=== PATIENT | female | born 1950 | race Caucasian/White ===

== ENCOUNTER → 2016-04-05 | Outpatient (CLI) | payer MEDICARE ==
[~2016-04-05] MED LIST: ISOVUE-370 76% 100ML VIAL (Q9967) As Ordered ONE
--- NOTE | 2016-04-06 16:26 | REP ---
CT ABDOMEN AND PELVIS WITHOUT AND WITH CONTRAST: 04/05/2016. Clinical history. Hydronephrosis with ureteral stricture, prior Hodgkin's lymphoma with radiation and chemotherapy in the past. Comparison: MRI abdomen without and with contrast 02/22/2016. Technique: Axial noncontrast abdomen and pelvis images with a bolus of 100 mL of Isovue 370 then performed and scanning through the abdomen pelvis, again performed with re-examination after a 9-minute delay. Coronal and sagittal reconstructions of those delayed images were obtained for CT urogram. Findings: CT abdomen: The lung bases were clear. No pleural effusion, pleural thickening or calcified pleural plaque evident and no evidence of a nodule or mass. Heart not enlarged. No pericardial thickening or effusion. The airway is unremarkable. No definite hiatal hernia. The liver, spleen and gallbladder are grossly intact. No calcified stone stones are evident. Left adrenal nodule is unchanged and has low density consistent with CT diagnosis of adrenal adenoma The gland itself measures 3 cm. There is no hydronephrosis. An extrarenal pelvis is noted. There are calcifications in the renal sinus on both sides which I suspect are vascular. The patient has an aortofemoral graft to the left common femoral artery. There is across femoral graft from left to right and clips are seen in both inguinal regions. Diffuse atherosclerotic calcifications are seen within the aorta with a maximum diameter of 2.7 cm infrarenal. Large eccentric soft plaque noted. Ectasia of the central area noted which tapers normally distally. Atherosclerotic calcifications are present. The mesentery shows no periaortic inflammatory changes or adenopathy. There is no ascites or free air in the abdomen or pelvis on this study. Gallbladder, liver, spleen, and kidneys were otherwise intact. There is one cortical cyst in the posterior aspect interpolar regions of both kidneys. Bones show no compression deformity or disc space narrowing. They maintain their normal gentle lordosis and minimal degenerative disc changes and facets are intact. No spondylolysis. CT pelvis: The bony hips, pelvis, sacrum, SI joints, and lumbosacral junction were intact. There is no spondylolysis, symphysis pubis and pubic rami were intact as well. Bladder is partially filled with the oral contrast containing urine. The ureters show normal course to the bladder. No bladder wall thickening, mass, or stone. Uterus is not enlarged. There is no adnexal mass or gross pelvic free fluid. There is extrarenal pelvis and proximal hydroureter to where the ureter crosses the aortofemoral graft origin. Below this the ureter is normal caliber. The right ureter was not dilated. Moderate stool in the left transverse colon, mild in the right and rectosigmoid. No other significant finding. Impression: 1. There is mild hydronephrosis and external pelvis on the delayed images, but not on the standard precontrast and equilibrium phase images. 2. 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 3. The delayed images show extrarenal pelvis on the left with hydroureter at the level where the ureter crosses the aortofemoral graft, just after its origin from the distal aorta. 4. Cross femoral graft is noted without dilatation at its origin or the junction with the common femoral artery on the right. There is no other significant finding. Signed by Derick Maya MD 04/06/2016 05:54 P
== END | disposition home or self-care (01) ==
LOC: M RAD 07:59
PROVIDERS: ATTEND Nurse Practitioner Women's Health
DX: N13.30 Unspecified hydronephrosis (principal); I77.819 Aortic ectasia, unspecified site; N13.4 Hydroureter
CPT/HCPCS: 74178; Q9967

== ENCOUNTER → 2016-04-08 | Outpatient (CLI) | payer MEDICARE ==
[~2016-04-08] MED LIST changes: +FUROSEMIDE 20 MG/2 ML VIAL (J1940) As Ordered ONE; -ISOVUE-370 76% 100ML VIAL (Q9967) As Ordered ONE
--- NOTE | 2016-04-08 16:21 | REP ---
Nuclear renal scintigraphy with differential flow and function analysis and post Lasix washout venography: History: Hydronephrosis with ureteral stricture. Comparison CT study: 04/05/2016 shows mild bilateral hydronephrosis and hydroureter left more so than right. Technique: 8.1 mCi technetium 99m Mag 3 is injected and a posterior flow and excretory phase images are acquired. Renal cortical regions of interest are drawn and time activity curves are plotted for renal function analysis. 20 mg of intravenous Lasix is given and post Lasix venography is carried out. Scintigraphic findings: The posterior flow study shows symmetric renal bed perfusion. Excretory phase images show no evidence of intrarenal mass. Renal collecting systems and pelves are labeled on the 3 to 4-minute image bilaterally. There is some fullness of the intrarenal collecting system and pelvis on the right initially and on the left in the later stages of this study. Pre and postvoid images show some retained pelvis in the left intrarenal collecting system and pelvis. Good bladder emptying. Differential renal function analysis shows 40% of overall renal cortical counts coming from the left kidney and 60% from the right. Time to peak activity is essentially normal measured at 3 minutes on the left and 2 minutes on the right. Time to half max activity is somewhat delayed on the left at 14.6 minutes and normal on the right at the 9.8 minutes. Post Lasix venography curves show washout from the intrarenal collecting system bilaterally. The time to half peak post Lasix on the left is 11.5 minutes. The washout curve is less deep on the right but there was no significant hydronephrosis on initial pre-Lasix images on the right. Impression: Nonobstructive fullness of the intrarenal collecting system bilaterally, left more so than right. Signed by Luca Cary MD 04/08/2016 05:03 P
== END | disposition home or self-care (01) ==
LOC: M RAD 12:31
PROVIDERS: ATTEND Nurse Practitioner Women's Health
DX: N13.1 Hydronephrosis with ureteral stricture, not elsewhere classified (principal)
CPT/HCPCS: 78708; A9562; J1940

== ENCOUNTER → 2016-09-14 | Outpatient (REF) | payer MEDICARE | LOC: M SMT 13:12 | PROVIDERS: ATTEND Nurse Practitioner Women's Health | DX: N13.1 Hydronephrosis with ureteral stricture, not elsewhere classified (principal) | CPT/HCPCS: 81001; 87086; G0463 ==

== ENCOUNTER → 2019-12-31 | Outpatient (CLI) | payer MEDICARE ==
--- NOTE | 2020-01-03 12:05 | REP ---
PET CT HISTORY: Diagnosing lung cancer. Solitary pulmonary nodule. TECHNIQUE: 1 hour and 14 minutes following the intravenous injection of an 8.86 mCi dose of F18 fluorodeoxyglucose (FDG), three-dimensional PET CT imaging is acquired from the skull base to the proximal thighs in the usual fashion. PET CT FINDINGS: Todays accompanying chest CT images demonstrate a 7-mm solid appearing nodule in the right lower lobe posteriorly near the major fissure displayed on Page 79 of 227 in Series 2 of todays study. There is a ground-glass opacity in the left lower lobe similar in size, 7 mm displayed on Page 83 of 227. No other pulmonary nodule is visible. Head and neck soft tissues are unremarkable. No abnormal hypermetabolic uptake is seen in the pulmonary nodules described above. No abnormal pulmonary parenchymal hypermetabolic uptake is seen. No abnormal hilar hypermetabolic uptake is appreciated. Normal appearing nonhypermetabolic precarinal lymph nodes are visible. No abnormal hypermetabolic uptake is seen in the chest. The known low density stable left adrenal nodule does not show hypermetabolic uptake. No abnormal hepatic uptake is seen. No abnormal uptake is seen in the abdomen or pelvis. There is an infrarenal abdominal aortic aneurysm measuring 3.4 cm in greatest diameter. There are a few scattered colonic diverticula. No abnormal abdominal or pelvic hypermetabolic uptake is seen. IMPRESSION: Negative PET scintigraphy. Neither the right lower lobe nor the left lower lobe pulmonary nodule shows abnormal hypermetabolic uptake. MTDD
== END ==
LOC: M PLARAD 11:30
PROVIDERS: ATTEND Internal Medicine Pulmonary Disease
DX: R91.1 Solitary pulmonary nodule (principal)
CPT/HCPCS: 78815; A9552

== ENCOUNTER → 2020-06-30 | Outpatient (REF) | payer MEDICARE ==
[2020-06-30 17:07] LABS: BASO # 0.1 10^3/uL (0.0-0.2); BASO % 1.1 % (0.0-1.0); EOS # 0.1 10^3/uL (0.0-0.5); EOS % 1.2 % (0.0-3.0); HEMOGLOBIN 14.4 g/dl (12.0-15.5); LYMPH # 2.5 10^3/uL (1.5-5.0); LYMPH % 29.8 % (24.0-44.0); MEAN CORPUSCULAR HEMOGLOBIN 32.1 pg (27.0-33.0); MEAN CORPUSCULAR HGB CONC 32.7 g/dl (32.0-36.5); MONO # 0.6 10^3/uL (0.0-0.8); MONO % 7.1 % (2.0-8.0); NEUTROPHILS # 4.9 10^3/uL (1.5-8.5); NEUTROPHILS % 60.2 % (36.0-66.0); PLATELET COUNT, AUTOMATED 315 10^3/uL (150-450); RED BLOOD COUNT 4.49 10^6/uL (4.00-5.40); WHITE BLOOD COUNT 8.2 10^3/uL (4.0-10.0)
[2020-06-30 17:35] LABS: BLOOD UREA NITROGEN 13 MG/DL (7-18); CALCIUM LEVEL 9.2 MG/DL (8.8-10.2); CARBON DIOXIDE LEVEL 28 MEQ/L (21-32); CHLORIDE LEVEL 105 MEQ/L (98-107); CREATININE FOR GFR 0.94 MG/DL (0.55-1.30); GLOMERULAR FILTRATION RATE > 60.0 (>39); GLUCOSE, FASTING 96 MG/DL (70-100); POTASSIUM SERUM 4.9 MEQ/L (3.5-5.1); SODIUM LEVEL 141 MEQ/L (136-145)
[2020-06-30 17:38] LABS: INR 0.96
[2020-06-30 17:39] LABS: PARTIAL THROMBOPLASTIN TIME 30.9 SECONDS (24.2-38.5)
== END ==
LOC: M LAB REF 16:34
PROVIDERS: ATTEND Internal Medicine Pulmonary Disease
DX: R91.1 Solitary pulmonary nodule (principal); Z79.01 Long term (current) use of anticoagulants

== ENCOUNTER → 2020-07-29 | Outpatient (CLI) | payer MEDICARE ==
[~2020-07-29] MED LIST changes: +CLOP75TA2 PO; -FUROSEMIDE 20 MG/2 ML VIAL (J1940) As Ordered ONE; +HYDR-3363 PO; +LOVA10TA PO; +QC A650T3 PO; +VALS40TA9 PO
== END ==
LOC: M LABSMTC 12:33
PROVIDERS: ATTEND Anesthesiology
DX: Z01.812 Encounter for preprocedural laboratory examination (principal); Z20.822 Contact with and (suspected) exposure to COVID-19

== ENCOUNTER 2020-08-03 10:33 | Day surgery (SDC) | payer MEDICARE ==
[~2020-08-03] VITALS: Ht 162.6 cm; Wt 58.9 kg
[~2020-08-03 10:33] MED LIST changes: +ALBUTEROL SULFATE 2.5 MG/0.5 ML INH NEB SOLN INH ONE; +LIDOCAINE 4% INJ 5ML AMP INH ONE; +LR 1,000 ML IV ONE
[2020-08-03] MEDS ORDERED: fentaNYL 100 MCG/2 ML INJECTION (J3010) As Ordered ONE (11:18)
[2020-08-03] MEDS ORDERED: dexameTHASONE 4 MG/ML 1ML VIAL (J1100 PER 1MG) As Ordered ONE (11:18)
[2020-08-03] MEDS ORDERED: LIDOCAINE 2% 100MG/5ML SDV (FOR ANES.) As Ordered ONE (11:18)
[2020-08-03] MEDS ORDERED: ROCURONIUM BROMIDE 50 MG/5 ML VIAL As Ordered ONE (11:18)
[2020-08-03] MEDS ORDERED: MIDAZOLAM INJ 2MG/2ML VIAL (J2250 PER 1MG) As Ordered ONE (11:18)
[2020-08-03] MEDS ORDERED: ONDANSETRON 4MG/2ML VIAL As Ordered ONE ×2 (11:18→13:51)
[2020-08-03] MEDS ORDERED: SUGAMMADEX SODIUM 500 MG/5 ML VIAL (BRIDION) As Ordered ONE (11:18)
[2020-08-03] MEDS ORDERED: propofoL 200 MG/20 ML VIAL As Ordered ONE (11:18)
[2020-08-03] MEDS ORDERED: CETACAINE SPRAY 5GM As Ordered ONE (11:52)
[2020-08-03] MEDS ORDERED: EPINEPHrine 1MG/10ML SYRINGE 1.5IN As Ordered ONE (12:23)
[2020-08-03] MEDS ORDERED: PHENYLephrine 500MCG 5ML (100MCG/ML) SYRINGE As Ordered ONE (13:19)
--- NOTE | 2020-08-03 13:47 | ROOR ---
Patient Name: Alize Aparicio Procedure Date: 08/03/2020 11:53 AM Date of : 1950 Admit Type: Outpatient Age: 70 Room: Main OR Note Status: Finalized Attending MD: Bing Wilson MD Procedure: Bronchoscopy Indications: Right lower lobe nodule Providers: Bing Wilson MD (Doctor), Gamal Lopez DO, [facility] (1st Assisting Doctor) Referring MD: None Requesting Physician: Medicines: Lidocaine 4% via nebulizer with Albuterol 2.5 mg, General Anesthesia, Epinephrine 1 mg/10 mL topical 1 mL, Cetacaine topical Complications: No immediate complications. Estimated blood loss: Minimal Procedure: Pre-Anesthesia Assessment: - Prior to the procedure, a History and Physical was performed, and patient medications and allergies were reviewed. The patient's tolerance of previous anesthesia was also reviewed. The risks and benefits of the procedure and the sedation options and risks were discussed with the patient. All questions were answered, and informed consent was obtained. Prior Anticoagulants: The patient has taken Plavix (clopidogrel), last dose was 7 days prior to procedure. ASA Grade Assessment: III - A patient with severe systemic disease. After reviewing the risks and benefits, the patient was deemed in satisfactory condition to undergo the procedure. - Patient identification and proposed procedure were verified prior to the procedure by the physician, the nurse, the anesthesiologist, the special education para professional and the fire technician. The procedure was verified in the procedure room. The Bronchoscope was introduced through the mouth, via the endotracheal tube (the patient was intubated for the procedure) and advanced to the tracheobronchial tree of both lungs. The procedure was accomplished without difficulty. The patient tolerated the procedure well. Findings: The endotracheal tube is in good position. The visualized portion of the trachea is of normal caliber. The alfa is sharp. The tracheobronchial tree was examined to at least the first subsegmental level. Bronchial mucosa and anatomy are normal; there are some mucoid white scattered secretions noted but no clear endobronchial lesions noted. Chat[employer] (ChatAnd) robotic Electromagnetic navigation bronchoscopy was performed. The CT scan was used for planning purposes. A virtual bronchoscopic image was generated using the planning software. The target in the superior segment of the right lower lobe was marked. A nodule 1.8 cm in size was found and a pathway was created. After a complete airway exam, the robotic electromagnetic navigation phase was then begun to locate the target lesion(s). Positioning centrally (in relation to the lesion) was confirmed using the Olympus radial probe US catheter. Transbronchial biopsies of a nodule were performed in the superior segment of the right lower lobe using forceps and sent for histopathology examination. The procedure was guided by fluoroscopy. Transbronchial biopsy technique was selected because the sampling site was not visible endoscopically. Fiducial marker placement was performed. Once the target lesion was identified, two markers were deployed in and around the lesion 3 mm apart in the superior segment of the right lower lobe. An endobronchial ultrasound endoscope was utilized in order to assist with fine needle aspiration in the subcarinal area and in the right hilum. Transbronchial needle aspirations of a lymph nodes were performed in the subcarinal area and in the right hilum using an Olympus EBUS-TBNA 21 gauge needle and sent for routine cytology. The procedure was guided by ultrasound. Transbronchial needle aspiration technique was selected because the sampling site was not visible endoscopically. Impression: - Right lower lobe nodule - The airway examination was normal. - Electromagnetic navigation bronchoscopy was performed. - Transbronchial lung biopsies were performed. - Fiducial markers were deployed. - Endobronchial ultrasound was performed. - A transbronchial needle aspiration was performed. Recommendation: - Await test results. Procedure Code(s): --- Professional --- 27735, Bronchoscopy, rigid or flexible, including fluoroscopic guidance, when performed; with placement of fiducial markers, single or multiple 03100, Bronchoscopy, rigid or flexible, including fluoroscopic guidance, when performed; with transbronchial needle aspiration biopsy(s), trachea, main stem and/or lobar bronchus(i) 52950, Bronchoscopy, rigid or flexible, including fluoroscopic guidance, when performed; with transbronchial lung biopsy(s), single lobe 29982, Bronchoscopy, rigid or flexible, including fluoroscopic guidance, when performed; with computer-assisted, image-guided navigation (List separately in addition to code for primary procedure[s]) 58753, Bronchoscopy, rigid or flexible, including fluoroscopic guidance, when performed; with transendoscopic endobronchial ultrasound (EBUS) during bronchoscopic diagnostic or therapeutic intervention(s) for peripheral lesion(s) (List separately in addition to code for primary procedure[s]) CPT copyright 2019 [employer]. All rights reserved. The codes documented in this report are preliminary and upon cutter down review may be revised to meet current compliance requirements. Bing Wilson MD 08/03/2020 1:47:27 PM Gamal Lopez DO, [facility] [place] Number of Addenda: 0 Note Initiated On: 08/03/2020 11:53 AM
--- NOTE | 2020-08-03 14:07 | REP ---
INDICATION: post op in pacu. COMPARISON: None. TECHNIQUE: Portable FINDINGS: The technique utilized in obtaining the radiograph has magnified the cardiac silhouette and accentuated the interstitial markings. The superior mediastinal structures are midline. The cardiac silhouette is unremarkable in size, shape, and position. The diaphragmatic surfaces of the lungs are regular, and the costophrenic angles are clear. The pulmonary kong are clear. Two tiny linear metallic radiodensities are seen in the right infrahilar region. The imaged osseous structures are intact. IMPRESSION: There is no acute cardiopulmonary disease. Two metallic radiodensities seen, as described above, and possibly representing fiducial markers. <Electronically signed by Ervin Terrazas > 08/03/20 0720
[2020-08-03] MEDS ORDERED: fentaNYL 100 MCG/2 ML INJECTION (J3010) IV PRN (14:10)
[2020-08-03] MEDS ORDERED: METOCLOPRAMIDE INJ 10MG/2ML VIAL (J2765 PER 1) IV PRN (14:10)
[2020-08-03] MEDS ORDERED: oxyCODONE 5MG TAB PO PRN (14:10)
[2020-08-03] MEDS ORDERED: ONDANSETRON 4MG/2ML VIAL IV PRN (14:10)
[2020-08-03] MEDS ORDERED: LR 1,000 ML IV SCH (14:10)
[2020-08-03 14:53] VITALS: BP 160/67
== END 2020-08-03 15:11 | disposition home or self-care (01) ==
LOC: M SDC 10:33
PROVIDERS: ATTEND Internal Medicine Pulmonary Disease
DX: J84.10 Pulmonary fibrosis, unspecified (principal); R91.1 Solitary pulmonary nodule; R59.0 Localized enlarged lymph nodes; J44.9 Chronic obstructive pulmonary disease, unspecified; C81.90 Hodgkin lymphoma, unspecified, unspecified site; I10 Essential (primary) hypertension; E78.5 Hyperlipidemia, unspecified; R73.03 Prediabetes; I73.9 Peripheral vascular disease, unspecified; R06.02 Shortness of breath; G47.00 Insomnia, unspecified; F41.9 Anxiety disorder, unspecified; R06.83 Snoring; Z92.21 Personal history of antineoplastic chemotherapy; Z92.3 Personal history of irradiation; F17.218 Nicotine dependence, cigarettes, with other nicotine-induced disorders; Z88.8 Allergy status to other drugs, medicaments and biological substances; Z79.899 Other long term (current) drug therapy; Z79.02 Long term (current) use of antithrombotics/antiplatelets
CPT/HCPCS: 31626; 31627; 31628; 31629; 31652; 71045; 76000; 88173; 88305; 88341; 88342; A4648; J1100; J2250; J2370; J2405; J3010; S2900

== ENCOUNTER → 2020-09-29 | Outpatient (CLI) | payer MEDICARE ==
[~2020-09-29] MED LIST changes: +ACET-683 PO; -ALBUTEROL SULFATE 2.5 MG/0.5 ML INH NEB SOLN INH ONE; +AZIT-10 PO; +B-122500 PO; +CODE473L3 PO; +CVS1CAP5 PO; +DEXA2TA PO; -LIDOCAINE 4% INJ 5ML AMP INH ONE; +LORA1TAB4 PO; -LR 1,000 ML IV ONE; +PLAV1TAB2 PO
== END ==
LOC: M PLARAD 07:54
PROVIDERS: ATTEND Internal Medicine Pulmonary Disease
DX: R91.1 Solitary pulmonary nodule (principal)
CPT/HCPCS: 78815; A9552

== ENCOUNTER → 2020-11-26 | Outpatient (CLI) | payer MEDICARE ==
[~2020-11-26] MED LIST changes: -ACET-683 PO; -AZIT-10 PO; -B-122500 PO; -CODE473L3 PO; -CVS1CAP5 PO; -DEXA2TA PO; -LORA1TAB4 PO; -PLAV1TAB2 PO
--- NOTE | 2020-11-26 15:02 | REP ---
INDICATION: SOLITARY PULMONARY NODULE COMPARISON: 12/06/2019 from an outside institution TECHNIQUE: Standard helical technique without intravenous contrast FINDINGS: There are multiple prominent borderline mediastinal lymph nodes. There is right hilar adenopathy but difficult to evaluate without intravenous contrast. There are no pleural or pericardial effusions. The imaged upper abdomen shows bilateral low-density adrenal gland masses left greater than right and unchanged from prior CT examination of the abdomen and pelvis of 04/05/2016.. The imaged osseous structures are stable and intact. Evaluation of the lung kong shows a 3.4 x 2.8 x 2.9 cm sized spiculated right infrahilar mass which abuts the right hilum and seen with spiculations in both right middle and right lower lobe regions. Metallic radiodensities are seen in this mass consistent with fiducial markers. Previously, this density measured 0.8 x 0.7 x 0.5 cm. In the left lower lobe there is an unchanged 9 mm sized ground-glass nodule with irregular margins. In the region of the superior lingula there is an asymmetric density which measures 0.9 cm in its greatest dimension. This represents a change from the prior exam. There is evidence of mild cylindrical bronchiectasis status quo and mild biapical pleuroparenchymal scarring. IMPRESSION: 1. Right lung mass as described above. 2. Additional asymmetric densities and chronic lung field changes as described above. 3. Suspected right hilar adenopathy and borderline mediastinal lymph nodes. Consider contrast-enhanced chest CT if clinically relevant. 4. Other findings as described above. <Electronically signed by Ervin Terrazas > 11/26/20 0430
== END ==
LOC: M RAD 14:10
PROVIDERS: ATTEND Internal Medicine Pulmonary Disease
DX: R91.1 Solitary pulmonary nodule (principal)

== ENCOUNTER → 2020-12-09 | Outpatient (CLI) | payer MEDICARE ==
[2020-12-09 15:09] LABS: BASO # 0.1 10^3/uL (0.0-0.2); BASO % 0.7 % (0.0-1.0); EOS # 0.2 10^3/uL (0.0-0.5); EOS % 1.9 % (0.0-3.0); HEMATOCRIT 42.8 % (36.0-47.0); HEMOGLOBIN 14.1 g/dl (12.0-15.5); LYMPH # 1.9 10^3/uL (1.5-5.0); LYMPH % 22.1 % (24.0-44.0); MEAN CORPUSCULAR HEMOGLOBIN 31.8 pg (27.0-33.0); MEAN CORPUSCULAR HGB CONC 32.9 g/dl (32.0-36.5); MEAN CORPUSCULAR VOLUME 96.6 fl (80.0-96.0); MONO # 0.8 10^3/uL (0.0-0.8); MONO % 8.7 % (2.0-8.0); NEUTROPHILS # 5.8 10^3/uL (1.5-8.5); NEUTROPHILS % 66.3 % (36.0-66.0); PLATELET COUNT, AUTOMATED 293 10^3/uL (150-450); RED BLOOD COUNT 4.43 10^6/uL (4.00-5.40); WHITE BLOOD COUNT 8.7 10^3/uL (4.0-10.0)
[2020-12-09 15:18] LABS: INR 0.93; PROTHROMBIN TIME 12.9 SECONDS (12.7-14.5)
[2020-12-09 15:30] LABS: CALCIUM LEVEL 9.1 MG/DL (8.8-10.2); CREATININE FOR GFR 0.99 MG/DL (0.55-1.30); GLOMERULAR FILTRATION RATE 58.9 (>39)
== END ==
LOC: M PLALAB 14:23
PROVIDERS: ATTEND Internal Medicine Pulmonary Disease
DX: R91.1 Solitary pulmonary nodule (principal)

== ENCOUNTER → 2020-12-11 | Outpatient (CLI) | payer MEDICARE ==
[~2020-12-11] MED LIST changes: +CVS1CAP5 PO
== END ==
LOC: M LABSMTC 09:39
PROVIDERS: ATTEND Anesthesiology
DX: Z01.812 Encounter for preprocedural laboratory examination (principal); Z20.822 Contact with and (suspected) exposure to COVID-19

== ENCOUNTER 2020-12-16 06:04 | Day surgery (SDC) | payer MEDICARE ==
[~2020-12-16] VITALS: Ht 162.6 cm; Wt 59.5 kg
[2020-12-16] MEDS ORDERED: ALBUTEROL SULFATE 2.5 MG/0.5 ML INH NEB SOLN INH ONE (07:10)
[2020-12-16] MEDS ORDERED: LR 1,000 ML IV ONE (07:10)
[2020-12-16] MEDS ORDERED: LIDOCAINE 4% INJ 5ML AMP INH ONE (07:10)
[2020-12-16] MEDS ORDERED: EPINEPHrine 1MG/10ML SYRINGE 1.5IN As Ordered ONE (07:12)
[2020-12-16] MEDS ORDERED: THROMBIN SOLN 5,000 UNITS VIAL As Ordered ONE (07:12)
[2020-12-16] MEDS ORDERED: CETACAINE SPRAY 5GM As Ordered ONE (07:12)
[2020-12-16] MEDS ORDERED: LIDOCAINE 2% 100MG/5ML SDV (FOR ANES.) As Ordered ONE (07:14)
[2020-12-16] MEDS ORDERED: ROCURONIUM BROMIDE 50 MG/5 ML VIAL As Ordered ONE (07:14)
[2020-12-16] MEDS ORDERED: fentaNYL 100 MCG/2 ML INJECTION (J3010) As Ordered ONE (07:15)
[2020-12-16] MEDS ORDERED: MIDAZOLAM INJ 2MG/2ML VIAL (J2250 PER 1MG) As Ordered ONE (07:15)
[2020-12-16] MEDS ORDERED: dexameTHASONE 4 MG/ML 1ML VIAL (J1100 PER 1MG) As Ordered ONE (07:15)
[2020-12-16] MEDS ORDERED: propofoL 200 MG/20 ML VIAL As Ordered ONE (07:15)
[2020-12-16] MEDS ORDERED: METOCLOPRAMIDE INJ 10MG/2ML VIAL (J2765 PER 1) As Ordered ONE (07:15)
[2020-12-16] MEDS ORDERED: ONDANSETRON 4MG/2ML VIAL As Ordered ONE (07:15)
--- NOTE | 2020-12-16 09:10 | REP ---
INDICATION: RIGHT LOWER LOBE ABNORMALITY, MEDIASTINAL LYMPHADENOPATHY. COMPARISON: None. TECHNIQUE: Thirty views. 257.4 seconds of fluoroscopy time is reported. FINDINGS: A sequence of 30 last image hold fluoroscopically obtained spot radiographs of the chest document bronchoscopic positioning and manipulation. IMPRESSION: Procedural imaging. <Electronically signed by Nikolas Cary > 12/16/20 0982
--- NOTE | 2020-12-16 09:19 | ROOR ---
Patient Name: Alize Aparicio Procedure Date: 12/16/2020 7:16 AM Date of : 1950 Admit Type: Outpatient Age: 70 Room: Main OR Note Status: Finalized Attending MD: Bing Wilson MD Procedure: Bronchoscopy Indications: Right lower lobe mass Providers: Bing Wilson MD (Doctor) Referring MD: 1. NO/Unknown PCP 1. NO/Unknown PCP, Admin. (Referring MD) Requesting Physician: Medicines: Lidocaine 4% via nebulizer with Albuterol 2.5 mg, Epinephrine 1 mg/10 mL topical 1 mL, Cetacaine topical, General Anesthesia Complications: No immediate complications. Estimated blood loss: Minimal Procedure: Pre-Anesthesia Assessment: - Prior to the procedure, a History and Physical was performed, and patient medications and allergies were reviewed. The patient's tolerance of previous anesthesia was also reviewed. The risks and benefits of the procedure and the sedation options and risks were discussed with the patient. All questions were answered, and informed consent was obtained. Prior Anticoagulants: The patient has taken Plavix (clopidogrel), last dose was 7 days prior to procedure. ASA Grade Assessment: III - A patient with severe systemic disease. After reviewing the risks and benefits, the patient was deemed in satisfactory condition to undergo the procedure. - Patient identification and proposed procedure were verified prior to the procedure by the physician, the nurse, the anesthesiologist, the continuous loft operator and the military technician. The procedure was verified in the procedure room. The Bronchoscope was introduced through the mouth, via the endotracheal tube (the patient was intubated for the procedure) and advanced to the tracheobronchial tree of both lungs. The procedure was accomplished without difficulty. The patient tolerated the procedure well. Findings: The endotracheal tube is in good position. The visualized portion of the trachea is of normal caliber. The alfa is sharp. The tracheobronchial tree was examined to at least the first subsegmental level. There was few mucoid secretions noted. Bronchial mucosa and anatomy are normal; there was mucosal pitting and webbing noted. There are no endobronchial lesions. In the RLL superior segment the mucosa appears edematous with extrinsic compression. [employer] Robotic Electromagnetic navigation bronchoscopy was performed. The CT scan was used for planning purposes. A virtual bronchoscopic image was generated using the planning software. The target in the superior segment of the right lower lobe was marked. A mass approx 3 cm in size was found and a pathway was created. After a complete airway exam, the Robotic EM navigation phase was then begun to locate the target lesion(s). Positioning centrally (in relation to the lesion) was confirmed using the Olympus radial probe US catheter. Transbronchial biopsies of a mass were performed in the superior segment of the right lower lobe using forceps and sent for histopathology examination. The procedure was guided by fluoroscopy. Transbronchial biopsy technique was selected because the sampling site was not visible endoscopically. Transbronchial needle aspirations of a mass were performed in the superior segment of the right lower lobe using a Moyer 19 gauge needle and sent for routine cytology. The procedure was guided by fluoroscopy. Transbronchial needle aspiration technique was selected because the sampling site was not accessible using standard endoscopic (bronchoscopic) techniques. Fiducial marker placement was performed. Patient had two previous fiducial markers from prior bronchoscopy. One of the markers was removed using forceps earlier. Once the target lesion was identified, one marker was deployed around the lesion 3-4 mm apart from the previous remaining marker in the superior segment of the right lower lobe. An endobronchial ultrasound endoscope was utilized in order to assist with fine needle aspiration in the subcarinal area and in the right hilum. Transbronchial needle aspirations of a lymph nodes were performed in the subcarinal area and in the right hilum using an Olympus EBUS-TBNA 21 gauge needle and sent for routine cytology. The procedure was guided by ultrasound. Bronchoalveolar lavage was performed in the RLL superior segment (B6) of the lung and sent for routine cytology, AFB analysis & culture and fungal analysis. The return was blood-tinged. Mucous plugs were present in the return fluid. Fiducial marker placement was performed. Once the target lesion was identified, one marker was deployed around the lesion 4 mm apart in the superior segment of the right lower lobe. Impression: - Right lower lobe mass - The airway examination was normal. - Electromagnetic navigation bronchoscopy was performed. - A transbronchial needle aspiration was performed. - Transbronchial lung biopsies were performed. - Endobronchial ultrasound was performed. - A transbronchial needle aspiration was performed. - Bronchoalveolar lavage was performed. Recommendation: - Await test results. Procedure Code(s): --- Professional --- 41932, Bronchoscopy, rigid or flexible, including fluoroscopic guidance, when performed; with transbronchial needle aspiration biopsy(s), trachea, main stem and/or lobar bronchus(i) 92859, Bronchoscopy, rigid or flexible, including fluoroscopic guidance, when performed; with transbronchial lung biopsy(s), single lobe 58543, Bronchoscopy, rigid or flexible, including fluoroscopic guidance, when performed; with bronchial alveolar lavage 03123, Bronchoscopy, rigid or flexible, including fluoroscopic guidance, when performed; with computer-assisted, image-guided navigation (List separately in addition to code for primary procedure[s]) 13137, Bronchoscopy, rigid or flexible, including fluoroscopic guidance, when performed; with transendoscopic endobronchial ultrasound (EBUS) during bronchoscopic diagnostic or therapeutic intervention(s) for peripheral lesion(s) (List separately in addition to code for primary procedure[s]) CPT copyright 2019 [employer]. All rights reserved. The codes documented in this report are preliminary and upon death surveys coder review may be revised to meet current compliance requirements. Bing Wilson MD 12/16/2020 9:19:19 AM Number of Addenda: 0 Note Initiated On: 12/16/2020 7:16 AM
[2020-12-16] MEDS ORDERED: fentaNYL 100 MCG/2 ML INJECTION (J3010) IV PRN (09:25)
[2020-12-16] MEDS ORDERED: ONDANSETRON 4MG/2ML VIAL IV PRN (09:25)
[2020-12-16] MEDS ORDERED: LR 1,000 ML IV SCH (09:25)
[2020-12-16] MEDS ORDERED: HYDROMORPHONE HCL 0.5 MG/ 0.5 ML SYRINGE (J1170 PER 1) IV PRN (09:25)
[2020-12-16] MEDS ORDERED: oxyCODONE 5MG TAB PO PRN (09:25)
--- NOTE | 2020-12-16 09:33 | REP ---
INDICATION: POST OP IN PACU. POST OP IN PACU. COMPARISON: 08/03/2020 TECHNIQUE: Portable FINDINGS: The technique utilized in obtaining the radiograph has magnified the cardiac silhouette and accentuated the interstitial markings. Cardiomediastinal silhouette is unchanged. There is a diffuse increase in the interstitial markings throughout the lung kong. There is a new patchy right lower lobe opacity. The pleural angles are sharp. There is no change in the osseous structures. IMPRESSION: 1. Mild interstitial edema accentuated by portable technique. 2. New right lower lobe opacity. Pneumonia cannot be ruled. <Electronically signed by Ervin Terrazas > 12/16/20 [id number]
[2020-12-16] MEDS ORDERED: ALBUTEROL SULFATE 2.5 MG/0.5 ML INH NEB SOLN INH STA (09:43)
[2020-12-16 10:28] VITALS: BP 175/73
== END 2020-12-16 10:35 | disposition home or self-care (01) ==
LOC: M SDC 06:04
PROVIDERS: ATTEND Internal Medicine Pulmonary Disease
DX: C77.1 Secondary and unspecified malignant neoplasm of intrathoracic lymph nodes (principal); R91.1 Solitary pulmonary nodule; R59.0 Localized enlarged lymph nodes; J44.9 Chronic obstructive pulmonary disease, unspecified; C81.90 Hodgkin lymphoma, unspecified, unspecified site; I10 Essential (primary) hypertension; E11.9 Type 2 diabetes mellitus without complications; E78.00 Pure hypercholesterolemia, unspecified; R01.1 Cardiac murmur, unspecified; Z92.21 Personal history of antineoplastic chemotherapy; R06.83 Snoring; F17.210 Nicotine dependence, cigarettes, uncomplicated; Z88.8 Allergy status to other drugs, medicaments and biological substances; Z79.899 Other long term (current) drug therapy; Z79.02 Long term (current) use of antithrombotics/antiplatelets; Z95.828 Presence of other vascular implants and grafts
CPT/HCPCS: 31624; 31626; 31627; 31628; 31629; 31652; 31654; 71045; 76000; 87102; 87116; 87206; 88108; 88173; 88305; 88313; 88341; 88342; A4648; J1100; J2250; J2405; J2765; J3010; S2900

== ENCOUNTER → 2021-01-05 | Outpatient (CLI) | payer MEDICARE ==
[~2021-01-05] MED LIST changes: +ACET-683 PO; +B-122500 PO; +PLAV1TAB2 PO
--- NOTE | 2021-01-05 16:32 | RADONC.CN ---
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 She is seen today for consideration of chemoradiation. Diagnosis/Treatment History Oncologic History Hodgkin Lymphoma: Discovered on exploratory laparotomoy for possible ovarian cyst s/p ABVD + IFRT (abdominal target volume) [facility] 2013 NSC12/06/[address] chest with RLL nodule 12/31/19 PET-CT negative 09/29/20 PET-CT with RLL avid and growing nodule to 2.5 cm 11/26/20 CT chest lesion to 3.5 cm 12/16/20 EBUS and biopsy confirming NSCLC (adenocarcinoma) in 10R, 7 was negative, RLL nodule had atypical cells PFTs FVC 2.76 FEV1 1.75 FEV1/FVC 76% pred Mild COPD Interval History Reports she had some cough after biopsy but this has improved. Says her RT in 2013 was abdominal, never had supradiaphragmatic disease. Had a positive cologuard recently, scheduled for colonoscopy January 2021. No BRBPR or abdominal symptoms. She has no CP, minimal JIMENES. No HARVEY or pain. Past Medical History: ANxiety COPD DMII HL HPL PVD Past Surgical History: AAA repair Aortofemoral bypass Family History: No family history of malignancy Social History: Current 1 ppd smoker 50 pack year Does not drink Allergies / Meds Allergies: Coded Allergies: prednisone (Verified Allergy, Severe, tongue swelling, 12/11/20) Home Meds Reported Medications Cyanocobalamin (Vitamin B-12) (Vitamin B12) 2,500 Mcg Tablet, 1000 MCG PO, TAB 01/05/21 Clopidogrel Bisulfate (Plavix) 75 Mg Tablet, 1 TAB PO DAILY for 30 Days, #30 TAB 01/05/21 Acetaminophen (Acetaminophen) 500 Mg Tablet, 1 TAB PO Q6H for fever for 15 Days, #60 TAB 01/05/21 Lactobacillus Combination No.4 (Probiotic) 1 Each Capsule, 1 CAP PO DAILY, CAP 12/11/20 Valsartan (Valsartan) 40 Mg Tablet, 40 MG PO DAILY 07/30/20 Lovastatin (Lovastatin) 10 Mg Tablet, 10 MG PO DAILY 07/30/20 Hydroxyzine HCl (Hydroxyzine HCl) 25 Mg Tablet, 25 MG PO QHS 07/30/20 Discontinued Reported Medications Acetaminophen (Acetaminophen 8 Hour) 650 Mg Tablet.er, 650 MG PO ASDIRECTED for 21 Days, #63 TAB 07/30/20 Clopidogrel Bisulfate (Clopidogrel) 75 Mg Tablet, 75 MG PO DAILY 07/30/20 Review of Systems Constitutional: Reports: Fatigue; Denies: Chills, Weight Loss Eyes: Denies: Pain HEENT: Denies: Head Aches Skin: Denies: Rash Pulmonary: Denies: Dyspnea, Cough, Pleuritic Chest Pain Cardiovascular: Denies: Chest Pain, Edema Gastrointestinal: Denies: Abdominal Pain, Constipation, Melena, Hematochezia Hematologic: Denies: Bruising, Bleeding Excessively Endocrine: Denies: Cold Intolerance Musculoskeletal: Denies: Neck pain, Back pain Neurological: Denies: Weakness, Numbness Psych: Reports: Anxiety Vital Signs Ht 64" Wt 132 lbs BMI 22.6 T 96.1 P 98 RR 18 BP 159.71 O2 97% Pain 0 Fatigue 0 General Exam: Alert, Cooperative, No Acute Distress Eye Exam: PERRLA, EOMI ENT EXAM: Atraumatic Neck Exam: Supple Chest Exam: Clear to auscultation, Normal air movement; Negative: Wheezing Heart Exam: Rate Normal, Regular Rhythm Abdomen Exam: Soft Extremity Exam: Edema Skin Exam: Nl turgor and temperature Neuro Exam: Normal Gait, Normal Speech, Cranial Nerves 3-12 NL Psych Exam: Anxiety Diagnostic and Laboratory Diagnostic Review Radiologic images, relevant labs and pathology reports were personally reviewed and discussed with Ms. Aparicio. Assessment and Plan Impression Ms. Aparicio is a 70 year old female current smoker with a history of Hodgkin Lymphoma (abdominal) s/p ABVD x 4 and IFRT completed @ [facility] in 2013, who has a recently diagnosed NSCLC of the RLL [id number] stage IIB. She is seen today for consideration of chemoradiation. Stage RLL NSCLC [id number] stage IIB Performance Status ECOG 0 Plan We had an extensive discussion with Ms. Aparicio regarding the diagnosis at hand and available therapeutic options. I reviewed her imaging and pathology with her in detail. She appears to be a stage IIB, I am concerned about the subcarinal node which looked evans on CT from 11/26/20 and had some uptake on PET-CT from September 2020. I will attempt to obtain an updated PET-CT now that she has been diagnosed formally with NSCLC to contemporaneously stage her and inform my RT planning volumes. I will also get an MRI brain to complete staging as she has not had any cranial imaging. With respect to treatment I recommend concurrent chemoradiation 60-66 Gy in 30- 33 fractions with VMAT/4DCT/ITV planning. She will be seeing medical oncology later today to hear about chemotherapy and adjuvant immunotherapy. We discussed the logistics of receiving radiation therapy in detail including the need for a 1-time planning session. This can occur in approximately 2 weeks to allow for completion of staging imaging and arrangement of chemotherapy. We discussed the side effects of treatment including fatigue, pneumonitis and esophagitis. I think she should have her colonoscopy done upon completion of her primary chemoradiation, it is important to screen her regularly due to the history of abdominal irradiation and the positive cologuard test, but in the absence of symptoms, this can be deferred to treatment of her lung cancer. I will confirm with pathology that this lung cancer is most consistent with NSCLC and distinct from colon cancer. After discussing the risks, benefits and alternatives to radiation therapy, Ms. Aparicio was amenable to pursuing radiotherapy. All questions were answered to the patient's satisfaction. We instructed the patient that if there were any questions,concerns or changes in clinical status in the interim to contact us. Recommendations Chemoradiation as described above Repeat PET-CT for RT planning MRI brain to complete staging Simulation week of 01/18/21 Billing Statement Total time of [48] minutes was spent preparing for the visit [2], obtaining HPI [6], examining the patient [2], reviewing diagnostic tests [5], discussing management options [22], coordinating care [4], and writing this note [7]. DIVINA ZIEGLER MD Jan 05, 2021 16:32
== END ==
LOC: M ONCR 13:52
PROVIDERS: ATTEND General Practice
DX: C34.31 Malignant neoplasm of lower lobe, right bronchus or lung (principal); F17.210 Nicotine dependence, cigarettes, uncomplicated; R19.5 Other fecal abnormalities; Z79.899 Other long term (current) drug therapy; Z85.71 Personal history of Hodgkin lymphoma; Z88.8 Allergy status to other drugs, medicaments and biological substances

== ENCOUNTER → 2021-01-13 | Outpatient (CLI) | payer MEDICARE ==
[~2021-01-13] MED LIST changes: +LIDOCAINE 1% MDV 20ML VIAL As Ordered ONE; +LORA1TAB4 PO; +MIDAZOLAM INJ 2MG/2ML VIAL (J2250 PER 1MG) As Ordered ONE; +NS 1,000 ML IV SCH; +ceFAZolin 2 GM/D5W 50 ML IV BAG (J0690 PER 500MG) As Ordered ONE; +ceFAZolin SOD 2 GM in IV 1 EA IV ONE; +diphenhydrAMINE 50MG/ML VIAL (J1200) As Ordered ONE; +fentaNYL 100 MCG/2 ML INJECTION (J3010) As Ordered ONE
--- NOTE | 2021-01-13 11:18 | IRHP ---
[facility] IR Pre-Procedure H & P General Date of Service: Jan 13, 2021 Procedure: Same Day Surgery Interval History and Physical I have seen the patient and reviewed last H & P performed within 30 days. There is no significant interval change. History of Present Illness Chief Complaint The patient is a 71-year-old female admitted with a reason for visit of Rt Lung Ca. PRE-PROCEDURE DIAGNOSIS: Right lung cancer HEART: Normal rate. LUNGS: Normal breathing at rest. ASA Classification ASA Classification: II-Mild systemic disease Mallampati Score: II NPO: Yes Problems with prior sedation: No Obstructive Sleep Apnea: No Plan moderate sedation Allergies Coded Allergies: prednisone (Verified Allergy, Severe, tongue swelling, 12/11/20) nickel (Verified Allergy, Unknown, 01/11/21) Home Medications Scheduled Acetaminophen (Acetaminophen), 1 TAB PO Q6H, (Reported) Clopidogrel Bisulfate (Plavix), 1 TAB PO DAILY, (Reported) Hydroxyzine HCl (Hydroxyzine HCl), 25 MG PO QHS, (Reported) Lactobacillus Combination No.4 (Probiotic), 1 CAP PO DAILY, (Reported) Lovastatin (Lovastatin), 10 MG PO DAILY, (Reported) Valsartan (Valsartan), 40 MG PO DAILY, (Reported) Miscellaneous Medications Cyanocobalamin (Vitamin B-12) (Vitamin B12), 1,000 MCG PO, (Reported) VS, I&O, 24H, Fishbone Vital Signs/I&O Vital Signs Date Time Temp Pulse Resp B/P (MAP) Pulse Ox O2 Delivery O2 Flow Rate FiO2 01/13/21 09:57 97.8 93 18 96 Room Air DORIS ALVARADO MD Jan 13, 2021 11:18
[2021-01-13 14:00] VITALS: BP 151/67
--- NOTE | 2021-01-14 13:15 | IRPON ---
IR Postoperative Note Date Of Procedure: Jan 13, 2021 Time Of Procedure: 16:00 IR Postoperative Note IR Ultrasound and fluoroscopy guided port placement IR Ultrasound of the neck. IR Moderate sedation. Clinical indication: Lung cancer. Physician: Dr. Alfaro. Procedure: The patient was advised of the benefits, risks, and alternatives of the procedure and informed consent was obtained. A time-out was performed with verification of the patient's name, MRN, site of procedure and type of procedure to be performed. The patient was positioned in the supine position on the angiographic table. The site was prepped and draped in the usual sterile fashion. Moderate sedation was performed by the physician including the presence of an independent trained RN who assisted and monitored the patient's level of consciousness and physiologic status. Following the administration of fentanyl and Versed , the physician spent 45 minutes of continuous face to face time with the patient. Ultrasound of the neck reveals a patent and compressible right internal jugular vein. A dairy farm supervisor radiograph reveals right lung mass and clips. The neck and anterior chest wall were anesthetized with lidocaine. The right internal jugular vein was accessed using a microintroducer needle under ultrasound guidance, via a lateral approach. An 018 wire was advanced into the superior vena cava, the needle was removed and a microsheath was placed. An Amplatz wire was then passed into the inferior vena cava. An incision at the internal jugular vein access site and anterior chest wall were made using a scalpel. An incision was made at the anterior chest wall. A small pocket was created using a combination of blunt and sharp dissection. A tunneling device was then used to pass the catheter from the pocket to the neck puncture site. An 8- [place] [employer]. Smart power port was then positioned in the pocket. The catheter was then measured and cut. The introducer sheath was exchanged for a peel-away sheath. The catheter was passed through the peel-away sheath into the internal jugular vein and the peel-away sheath was removed. The port tip was positioned at the cavoatrial junction. The port was then accessed with a Cannon needle. The port flushes and aspirates well. The puncture site in the neck was closed. The chest wall incision was then closed with 2-0 Vicryl and 4-0 Monocryl. Glue and Steri- Strips were applied. A sterile dressing was then applied. The patient tolerated the procedure well and was returned to the PRU in stable condition. Estimated blood loss: <5 ml. Complications: None. Conclusion: 1. Successful placement of an 8-[place] [employer] Smart power port via the right internal jugular vein. The port is ready for immediate use. 2. Patient to follow up in IR clinic in 2 weeks. Thank you for this referral. DORIS ALFARO MD Jan 14, 2021 13:15
== END ==
LOC: M IRPRO 09:18
PROVIDERS: ATTEND Specialist
DX: C34.11 Malignant neoplasm of upper lobe, right bronchus or lung (principal); Z79.899 Other long term (current) drug therapy; Z88.8 Allergy status to other drugs, medicaments and biological substances; Z91.09 Other allergy status, other than to drugs and biological substances
CPT/HCPCS: 36561; 99152; 99153; C1769; C1788; C1894; J0690; J1200; J1642; J1644; J2250; J3010

== ENCOUNTER → 2021-01-20 | Outpatient (CLI) | payer MEDICARE ==
[~2021-01-20] MED LIST changes: -LIDOCAINE 1% MDV 20ML VIAL As Ordered ONE; -MIDAZOLAM INJ 2MG/2ML VIAL (J2250 PER 1MG) As Ordered ONE; -NS 1,000 ML IV SCH; +PROHANCE 279.3MG/ML 5ML VIAL As Ordered ONE; -ceFAZolin 2 GM/D5W 50 ML IV BAG (J0690 PER 500MG) As Ordered ONE; -ceFAZolin SOD 2 GM in IV 1 EA IV ONE; -diphenhydrAMINE 50MG/ML VIAL (J1200) As Ordered ONE; -fentaNYL 100 MCG/2 ML INJECTION (J3010) As Ordered ONE
== END ==
LOC: M RAD 16:41
PROVIDERS: ATTEND General Practice
DX: C34.90 Malignant neoplasm of unspecified part of unspecified bronchus or lung (principal)

== ENCOUNTER → 2021-01-25 | Outpatient (CLI) | payer MEDICARE ==
[~2021-01-25] MED LIST changes: -PROHANCE 279.3MG/ML 5ML VIAL As Ordered ONE
--- NOTE | 2021-01-26 15:26 | REP ---
INDICATION: STAGING RUL LUNG CANCER C34.11. COMPARISON: None. TECHNIQUE: Following the injection of 9.15 mCi FDG-8 pain scans were obtained from the head through the mid thighs. FINDINGS: The large right infrahilar mass has an SUV of 11.2 and is consistent with tumor. No other focus of abnormal uptake is identified. The known left adrenal mass has heterogeneous uptake and a maximum SUV of 2.4. This is consistent with an adrenal adenoma. IMPRESSION: Abnormal uptake in the right infrahilar region consistent with tumor. <Electronically signed by Honorio Sharif > 01/26/21 1523
== END ==
LOC: M PLARAD 10:45
PROVIDERS: ATTEND General Practice
DX: C34.11 Malignant neoplasm of upper lobe, right bronchus or lung (principal)
CPT/HCPCS: 78815; A9552

== ENCOUNTER → 2021-01-27 | Outpatient (CLI) | payer MEDICARE ==
[~2021-01-27] MED LIST changes: +ISOVUE-370 76% 100ML VIAL As Ordered ONE
--- NOTE | 2021-01-27 17:15 | REPVR ---
PROCEDURE INFORMATION: Exam: CT Head Without And With Contrast Exam date and time: 01/27/2021 4:52 PM Age: 71 years old Clinical indication: Condition or disease; History of cancer (specify primary cancer site): ; Primary cancer: Lung; Additional info: Lung CA TECHNIQUE: Imaging protocol: Computed tomography of the head without and with intravenous contrast. Radiation optimization: All CT scans at this facility use at least one of these dose optimization techniques: automated exposure control; mA and/or kV adjustment per patient size (includes targeted exams where dose is matched to clinical indication); or iterative reconstruction. Contrast material: ISOVUE 370; Contrast volume: 100 ml; Contrast route: INTRAVENOUS (IV); COMPARISON: PT PET/CT Skull/mid thigh 01/25/2021 12:26 PM FINDINGS: Brain: Calcification in bilateral basal ganglia. The cannon-white differentiation is maintained. No hemorrhage. No edema. Cerebral ventricles: No ventriculomegaly. Paranasal sinuses: Visualized sinuses are unremarkable. No fluid levels. Mastoid air cells: Visualized mastoid air cells are well aerated. Bones/joints: Unremarkable. No acute fracture. Soft tissues: Unremarkable. IMPRESSION: No acute intracranial abnormality. Electronically signed by: Serafin Dickens On 01/27/2021 17:14:53 PM
== END ==
LOC: M RAD 16:31
PROVIDERS: ATTEND General Practice
DX: C34.90 Malignant neoplasm of unspecified part of unspecified bronchus or lung (principal)
CPT/HCPCS: 70470; Q9967

== ENCOUNTER → 2021-02-16 | Outpatient (RCR) | payer MEDICARE ==
[~2021-02-16] MED LIST changes: +AZIT-10 PO; +CODE473L3 PO; +DEXA2TA PO; -ISOVUE-370 76% 100ML VIAL As Ordered ONE
== END ==
LOC: M ONCR 01-21 07:29
PROVIDERS: ATTEND General Practice
DX: C34.31 Malignant neoplasm of lower lobe, right bronchus or lung (principal)

== ENCOUNTER 2021-03-18 13:16 | Outpatient (RCR) | payer MEDICARE | END 2021-03-19 | LOC: M ONCR 13:16 | PROVIDERS: ATTEND General Practice | DX: C34.31 Malignant neoplasm of lower lobe, right bronchus or lung (principal) ==

== ENCOUNTER 2021-03-30 13:16 | Outpatient (RCR) | payer MEDICARE | END 2021-04-19 | LOC: M ONCR 13:16 | PROVIDERS: ATTEND General Practice | DX: C34.31 Malignant neoplasm of lower lobe, right bronchus or lung (principal) ==

== ENCOUNTER → 2021-04-20 | Outpatient (CLI) | payer MEDICARE | LOC: M RAD 13:34 | PROVIDERS: ATTEND Specialist | DX: C50.911 Malignant neoplasm of unspecified site of right female breast (principal) | CPT/HCPCS: 71260; Q9967 ==

== ENCOUNTER → 2021-07-30 | Outpatient (CLI) | payer MEDICARE ==
[~2021-07-30] MED LIST changes: +ISOVUE-370 76% 100ML VIAL As Ordered ONE
== END ==
LOC: M RAD 08:41
PROVIDERS: ATTEND Specialist
DX: C34.90 Malignant neoplasm of unspecified part of unspecified bronchus or lung (principal)
CPT/HCPCS: 71260; Q9967

== ENCOUNTER → 2021-09-16 | Outpatient (CLI) | payer MEDICARE ==
[~2021-09-16] MED LIST changes: +BENZ200C70; +FLUT1BLS8; -ISOVUE-370 76% 100ML VIAL As Ordered ONE
== END ==
LOC: M SOG 13:40
PROVIDERS: ATTEND Orthopaedic Surgery
DX: Z47.89 Encounter for other orthopedic aftercare (principal)

== ENCOUNTER → 2021-11-04 | Outpatient (CLI) | payer MEDICARE ==
[~2021-11-04] MED LIST changes: +CALC500C16 PO
== END ==
LOC: M SOG 08:54
PROVIDERS: ATTEND Orthopaedic Surgery
DX: M48.56XA Collapsed vertebra, not elsewhere classified, lumbar region, initial encounter for fracture (principal)

== ENCOUNTER → 2021-11-05 | Outpatient (CLI) | payer MEDICARE ==
[~2021-11-05] MED LIST changes: +ALEN70TA87 PO
== END ==
LOC: M ONCR 13:45
PROVIDERS: ATTEND General Practice
DX: C34.31 Malignant neoplasm of lower lobe, right bronchus or lung (principal); F17.210 Nicotine dependence, cigarettes, uncomplicated; Z85.71 Personal history of Hodgkin lymphoma; Z92.3 Personal history of irradiation; Z92.21 Personal history of antineoplastic chemotherapy; Z88.1 Allergy status to other antibiotic agents; Z79.899 Other long term (current) drug therapy

== ENCOUNTER → 2022-01-28 | Outpatient (CLI) | payer MEDICARE ==
[~2022-01-28] MED LIST changes: +CLOP75TA99 PO; +GASTROGRAFIN SOLUTION 30ML As Ordered ONE; +ISOVUE-370 76% 100ML VIAL As Ordered ONE; -PLAV1TAB2 PO
== END ==
LOC: M RAD 10:46
PROVIDERS: ATTEND Internal Medicine
DX: C34.90 Malignant neoplasm of unspecified part of unspecified bronchus or lung (principal)
CPT/HCPCS: 71260; 74177; Q9963; Q9967

== ENCOUNTER → 2022-02-18 | Outpatient (CLI) | payer MEDICARE ==
[~2022-02-18] MED LIST changes: -GASTROGRAFIN SOLUTION 30ML As Ordered ONE; -ISOVUE-370 76% 100ML VIAL As Ordered ONE; +METO1TAB87; +SYMB16INH
== END ==
LOC: M ONCR 12:37
PROVIDERS: ATTEND General Practice
DX: C34.31 Malignant neoplasm of lower lobe, right bronchus or lung (principal); C81.93 Hodgkin lymphoma, unspecified, intra-abdominal lymph nodes; E04.1 Nontoxic single thyroid nodule; F17.210 Nicotine dependence, cigarettes, uncomplicated; Z79.02 Long term (current) use of antithrombotics/antiplatelets; Z79.51 Long term (current) use of inhaled steroids; Z79.899 Other long term (current) drug therapy; Z88.8 Allergy status to other drugs, medicaments and biological substances; Z91.048 Other nonmedicinal substance allergy status; Z92.21 Personal history of antineoplastic chemotherapy; Z92.3 Personal history of irradiation

== ENCOUNTER 2022-03-16 13:36 | Outpatient (RCR) | payer MEDICARE | END 2022-03-19 | LOC: M ONCR 13:36 | PROVIDERS: ATTEND General Practice | DX: C34.31 Malignant neoplasm of lower lobe, right bronchus or lung (principal) ==

== ENCOUNTER → 2022-05-16 | Outpatient (CLI) | payer MEDICARE ==
[~2022-05-16] MED LIST changes: +ISOVUE-370 76% 100ML VIAL As Ordered ONE
[2022-05-16 12:08] LABS: ALBUMIN 3.5 G/DL (3.2-5.2); ALKALINE PHOSPHATASE 71 U/L (46-116); ALT/SGPT 12 U/L (7.0-40); AST/SGOT 13 U/L (<34); BILIRUBIN,TOTAL 0.4 MG/DL (0.3-1.2); BLOOD UREA NITROGEN 8 MG/DL (9-23); CALCIUM LEVEL 9.1 MG/DL (8.3-10.6); CARBON DIOXIDE LEVEL 28 MMOL/L (20-31); CHLORIDE LEVEL 104 MMOL/L (98-107); CREATININE FOR GFR 0.87 MG/DL (0.55-1.30); GLOMERULAR FILTRATION RATE > 60.0 (>39); GLUCOSE, FASTING 120 MG/DL (74-106); POTASSIUM SERUM 4.2 MMOL/L (3.5-5.1); SODIUM LEVEL 139 MMOL/L (136-145); TOTAL PROTEIN 7.1 G/DL (5.7-8.2)
== END ==
LOC: M RAD 08:42 → M LAB 08:50
PROVIDERS: ATTEND General Practice
DX: C34.31 Malignant neoplasm of lower lobe, right bronchus or lung (principal)

== ENCOUNTER 2022-06-13 18:24 | Emergency (ER) | payer MEDICARE ==
[~2022-06-13] VITALS: Ht 162.6 cm; Wt 61.4 kg
[~2022-06-13 18:24] MED LIST changes: -ISOVUE-370 76% 100ML VIAL As Ordered ONE
[2022-06-13 18:25] VITALS: BP 125/59
[2022-06-13 21:06] LABS: BASO % 0.3 % (0.0-1.0); EOS % 0.1 % (0.0-3.0); HEMATOCRIT 40.1 % (36.0-47.0); HEMOGLOBIN 13.7 g/dl (12.0-15.5); MEAN CORPUSCULAR HEMOGLOBIN 32.8 pg (27.0-33.0); MEAN CORPUSCULAR HGB CONC 34.2 g/dl (32.0-36.5); MEAN CORPUSCULAR VOLUME 95.9 fl (80.0-96.0); MONO # 1.3 10^3/uL (0.0-0.8); MONO % 9.3 % (2.0-8.0); NEUTROPHILS # 11.3 10^3/uL (1.5-8.5); NEUTROPHILS % 82.6 % (36.0-66.0); PLATELET COUNT, AUTOMATED 250 10^3/uL (150-450); RED BLOOD COUNT 4.18 10^6/uL (4.00-5.40); WHITE BLOOD COUNT 13.6 10^3/uL (4.0-10.0)
[2022-06-13 21:31] LABS: CK-MB VALUE MASS 1.1 NG/ML (<3.6)
[2022-06-13 21:33] LABS: ALBUMIN 3.3 G/DL (3.2-5.2); ALKALINE PHOSPHATASE 67 U/L (46-116); ALT/SGPT < 9 U/L (7.0-40); AST/SGOT 13 U/L (<34); BILIRUBIN,DIRECT 0.3 MG/DL (<0.4); BILIRUBIN,TOTAL 0.6 MG/DL (0.3-1.2); BLOOD UREA NITROGEN 9 MG/DL (9-23); CALCIUM LEVEL 8.8 MG/DL (8.3-10.6); CARBON DIOXIDE LEVEL 25 MMOL/L (20-31); CHLORIDE LEVEL 96 MMOL/L (98-107); CPK CREATINE PHOSPHOKINASE 29 U/L (34-145); CREATININE FOR GFR 0.78 MG/DL (0.55-1.30); GLOMERULAR FILTRATION RATE > 60.0 (>39); GLUCOSE, FASTING 134 MG/DL (74-106); MB/CK RELATIVE INDEX 3.79 (< OR =4); POTASSIUM SERUM 4.4 MMOL/L (3.5-5.1); SODIUM LEVEL 129 MMOL/L (136-145); TOTAL PROTEIN 6.9 G/DL (5.7-8.2)
[2022-06-13 21:35] LABS: THYROID STIMULATING HORMONE 0.614 uIU/ML (0.55-4.78); THYROXINE (T4) 11.2 UG/DL (4.5-10.9)
== END 2022-06-13 23:46 | disposition left against medical advice (07) ==
LOC: M ED 18:24
DX: Z53.21 Procedure and treatment not carried out due to patient leaving prior to being seen by health care provider (principal)

== ENCOUNTER → 2022-07-05 | Outpatient (CLI) | payer MEDICARE | LOC: M ONCR 10:41 | PROVIDERS: ATTEND General Practice | DX: C34.31 Malignant neoplasm of lower lobe, right bronchus or lung (principal); F17.210 Nicotine dependence, cigarettes, uncomplicated; J44.9 Chronic obstructive pulmonary disease, unspecified; J90 Pleural effusion, not elsewhere classified; Z79.02 Long term (current) use of antithrombotics/antiplatelets; Z79.51 Long term (current) use of inhaled steroids; Z79.899 Other long term (current) drug therapy; Z85.71 Personal history of Hodgkin lymphoma; Z88.8 Allergy status to other drugs, medicaments and biological substances; Z91.048 Other nonmedicinal substance allergy status; Z92.21 Personal history of antineoplastic chemotherapy; Z92.3 Personal history of irradiation | CPT/HCPCS: 99406; G0463 ==

== ENCOUNTER → 2022-09-26 | Outpatient (CLI) | payer MEDICARE ==
[~2022-09-26] MED LIST changes: +ISOVUE-370 76% 100ML VIAL ONE; +LORA1TAB23 PO; -LORA1TAB4 PO
== END ==
LOC: M PLAIMG 10:38
PROVIDERS: ATTEND General Practice
DX: C34.31 Malignant neoplasm of lower lobe, right bronchus or lung (principal)
CPT/HCPCS: 71260; Q9967

== ENCOUNTER → 2022-10-04 | Outpatient (CLI) | payer MEDICARE ==
[~2022-10-04] MED LIST changes: -ISOVUE-370 76% 100ML VIAL ONE
== END ==
LOC: M ONCR 10:21
PROVIDERS: ATTEND General Practice
DX: C34.31 Malignant neoplasm of lower lobe, right bronchus or lung (principal); F17.218 Nicotine dependence, cigarettes, with other nicotine-induced disorders; Z85.71 Personal history of Hodgkin lymphoma; Z92.21 Personal history of antineoplastic chemotherapy; Z92.3 Personal history of irradiation; J44.9 Chronic obstructive pulmonary disease, unspecified; Z71.2 Person consulting for explanation of examination or test findings; Z79.02 Long term (current) use of antithrombotics/antiplatelets; Z79.51 Long term (current) use of inhaled steroids; Z79.899 Other long term (current) drug therapy; Z88.8 Allergy status to other drugs, medicaments and biological substances; Z91.048 Other nonmedicinal substance allergy status

== ENCOUNTER → 2022-11-22 | Outpatient (CLI) | payer MEDICARE | LOC: M PLARAD 09:32 | PROVIDERS: ATTEND General Practice | DX: C34.31 Malignant neoplasm of lower lobe, right bronchus or lung (principal) | CPT/HCPCS: 78815; A9552 ==

== ENCOUNTER → 2022-11-24 | Outpatient (CLI) | payer MEDICARE | LOC: M ONCR 12:52 | PROVIDERS: ATTEND General Practice | DX: C34.31 Malignant neoplasm of lower lobe, right bronchus or lung (principal); Z71.2 Person consulting for explanation of examination or test findings; Z79.01 Long term (current) use of anticoagulants; Z79.51 Long term (current) use of inhaled steroids; Z85.71 Personal history of Hodgkin lymphoma; Z88.8 Allergy status to other drugs, medicaments and biological substances; Z91.048 Other nonmedicinal substance allergy status; Z92.21 Personal history of antineoplastic chemotherapy; Z92.3 Personal history of irradiation ==

== ENCOUNTER 2023-02-01 06:03 | Day surgery (SDC) | payer MEDICARE ==
[~2023-02-01] VITALS: Ht 162.6 cm; Wt 55.2 kg
[~2023-02-01 06:03] MED LIST changes: +SERT25TA21 PO
[2023-02-01] MEDS ORDERED: LR 1,000 ML IV SCH ×2 (06:20→08:30)
[2023-02-01] MEDS ORDERED: TUMS500C PO (06:43)
[2023-02-01] MEDS ORDERED: ONDANSETRON 4MG 2ML VIAL As Ordered ONE (06:59)
[2023-02-01] MEDS ORDERED: LIDOCAINE 2% 100MG/5ML SDV (FOR ANES.) As Ordered ONE (06:59)
[2023-02-01] MEDS ORDERED: ROCURONIUM BROMIDE 50MG/5ML VIAL As Ordered ONE (06:59)
[2023-02-01] MEDS ORDERED: SUGAMMADEX SODIUM 500 MG/5 ML VIAL (BRIDION) As Ordered ONE (06:59)
[2023-02-01] MEDS ORDERED: propofoL 200 MG/20 ML VIAL As Ordered ONE (06:59)
[2023-02-01] MEDS ORDERED: MIDAZOLAM INJ 2MG/2ML VIAL As Ordered ONE (07:04)
[2023-02-01] MEDS ORDERED: fentaNYL 100 MCG/2 ML INJECTION As Ordered ONE (07:04)
[2023-02-01] MEDS ORDERED: THROMBIN 5,000 UNITS VIAL As Ordered ONE (07:16)
[2023-02-01] MEDS ORDERED: EPINEPHrine 1MG/10ML SYRINGE 1.5IN As Ordered ONE (07:17)
[2023-02-01] MEDS ORDERED: CETACAINE SPRAY 5GM As Ordered ONE (07:17)
[2023-02-01] MEDS ORDERED: ACETAMINOPHEN 1000MG 100ML IV BAG As Ordered ONE (07:50)
[2023-02-01] MEDS ORDERED: ONDANSETRON 4MG 2ML VIAL IV PRN (08:30)
[2023-02-01] MEDS ORDERED: oxyCODONE 5MG TAB PO PRN (08:30)
[2023-02-01] MEDS ORDERED: HYDROMORPHONE HCL 0.5 MG/ 0.5 ML SYRINGE IV PRN (08:30)
[2023-02-01] MEDS ORDERED: fentaNYL 100 MCG/2 ML INJECTION IV PRN (08:30)
[2023-02-01] MEDS ORDERED: ALBUTEROL SULFATE 2.5MG/0.5ML INH NEB SOLN INH ONE (10:00)
[2023-02-01 10:28] VITALS: BP 130/63; TEMP 97.1
[2023-02-01 10:42] VITALS: O2SAT 92
== END 2023-02-01 11:08 | disposition home or self-care (01) ==
LOC: M SDC 06:03
PROVIDERS: ATTEND Internal Medicine Pulmonary Disease
DX: I89.8 Other specified noninfective disorders of lymphatic vessels and lymph nodes (principal); Z85.118 Personal history of other malignant neoplasm of bronchus and lung; Z92.3 Personal history of irradiation; Z92.21 Personal history of antineoplastic chemotherapy; F17.210 Nicotine dependence, cigarettes, uncomplicated; I10 Essential (primary) hypertension; E78.00 Pure hypercholesterolemia, unspecified; Z79.899 Other long term (current) drug therapy; Z79.02 Long term (current) use of antithrombotics/antiplatelets; Z88.8 Allergy status to other drugs, medicaments and biological substances
CPT/HCPCS: 31652; 88173; 88305; J0131; J1100; J2250; J2405; J3010

== ENCOUNTER → 2023-02-21 | Outpatient (CLI) | payer MEDICARE ==
[~2023-02-21] MED LIST changes: +TUMS500C PO
[2023-02-21 14:48] LABS: INR 1.01
== END ==
LOC: M ONCR 13:39
PROVIDERS: ATTEND General Practice
DX: C34.31 Malignant neoplasm of lower lobe, right bronchus or lung (principal); J70.1 Chronic and other pulmonary manifestations due to radiation; R05.8 Other specified cough; W88.8XXA Exposure to other ionizing radiation, initial encounter; F17.210 Nicotine dependence, cigarettes, uncomplicated; Z71.2 Person consulting for explanation of examination or test findings; Z79.01 Long term (current) use of anticoagulants; Z79.899 Other long term (current) drug therapy; Z85.71 Personal history of Hodgkin lymphoma; Z88.8 Allergy status to other drugs, medicaments and biological substances; Z91.048 Other nonmedicinal substance allergy status; Z92.3 Personal history of irradiation
CPT/HCPCS: 36415; 85610; G0463

== ENCOUNTER → 2023-05-30 | Outpatient (CLI) | payer MEDICARE | LOC: M ONCR 13:51 | PROVIDERS: ATTEND General Practice | DX: C34.31 Malignant neoplasm of lower lobe, right bronchus or lung (principal) ==